=== PATIENT | male | born 1955 | race African-American/Black ===

== ENCOUNTER 2019-10-12 05:31 | Inpatient (IN) | payer MEDICARE, OTHER ==
[~2019-10-12] VITALS: Ht 172.7 cm; Wt 142.6 kg
[2019-10-12] MEDS ORDERED: DILTIAZEM HCL 5MG/ML 5ML VIAL IV ONE (05:45)
[2019-10-12 06:05] LABS: BASOPHILS % 1.2 % (0.0-2.0); EOSINOPHILS % 2.5 % (0.0-5.0); HEMATOCRIT. 45.3 % (42.0-52.0); HEMOGLOBIN. 14.8 g/dL (14.0-18.0); LYMPHOCYTES % 16.5 % (20.0-50.0); MEAN CORPUSCULAR VOLUME 82.9 fL (80.0-94.0); MEAN PLATELET VOLUME 8.7 fl (7.4-10.4); MONOCYTES % 8.9 % (2.0-8.0); NEUTROPHILS % 70.9 % (40.0-76.0); PLATELET 207 x1000/uL (130-400); RED BLOOD CELL COUNT 5.46 mill/uL (4.7-6.1); RED CELL DISTRIBUTION WIDTH 17.5 % (11.6-14.6)
[2019-10-12 06:10] LABS: CHLORIDE 107 mEq/L (98-107)
[2019-10-12] MEDS ORDERED: NITROGLYCERIN 0.4MG TABLET SL SL PRN (06:30)
[2019-10-12] MEDS ORDERED: FUROSEMIDE 40MG/4ML VIAL IV ONE (06:30)
[2019-10-12] MEDS ORDERED: ENOXAPARIN 100MG/ML SYR SUBCUT ONE (06:30)
[2019-10-12] MEDS ORDERED: ASPIRIN 81MG TABLET PO ONE (06:30)
[2019-10-12] MEDS ORDERED: POTASSIUM CHLORIDE 20MEQ TABLET SR PO ONE ×2 (06:45→10:15)
[2019-10-12] MEDS ORDERED: DILTIAZEM HCL 120MG CAPSULE CD 24HR PO ONE (07:30)
[2019-10-12 08:29] LABS: METHADONE URINE SCREEN NEGATIVE (NEGATIVE)
[2019-10-12 08:30] LABS: *AMPHETAMINES SCREEN URINE NEGATIVE (NEGATIVE); *BARBITURATES SCREEN URINE NEGATIVE (NEGATIVE); CANNABINOID URINE SCREEN NEGATIVE (NEGATIVE); OPIATES URINE SCREEN NEGATIVE (NEGATIVE); PHENCYCLIDINE URINE SCREEN NEGATIVE (NEGATIVE)
[2019-10-12] MEDS ORDERED: HYDRALAZINE HCL 100MG TABLET PO ONE (08:30)
[2019-10-12 08:31] LABS: *BENZODIAZEPINES SCREEN URINE NEGATIVE (NEGATIVE); *COCAINE SCREEN URINE NEGATIVE (NEGATIVE)
[2019-10-12] MEDS ORDERED: ONDANSETRON HCL 4MG/2ML INJ IV PRN (09:00)
[2019-10-12 09:12] LABS: PHOSPHORUS 3.9 mg/dL (2.5-4.9)
[2019-10-12] MEDS ORDERED: HYDRALAZINE 20MG/ML VIAL IV NR (10:45)
[2019-10-12] MEDS: ACETAMINOPHEN 325MG TABLET PO PRN ×2 (13:38→17:54)
[2019-10-12] MEDS: IPRATROPIUM/ALBUTEROL 0.5-3(2.5)MG/3ML NEB HHN PRN (14:30)
[2019-10-12] MEDS: DILTIAZEM HCL 60MG TABLET PO SCH ×2 (15:14→22:00)
[2019-10-12 15:51] VITALS: BP 173/95
[2019-10-12] MEDS: CLONIDINE 0.1MG TABLET PO PRN (17:54)
[2019-10-12] MEDS ORDERED: HYDRALAZINE 20MG/ML VIAL IV PRN (18:15)
[2019-10-12 20:00] VITALS: BP 100/74
[2019-10-12 23:11] VITALS: BP 100/74
[2019-10-12 23:52] LABS: CREATINE KINASE MB FRACTION 1.5 ng/mL (0.5-3.6)
[2019-10-13] VITALS (10 sets, daily range): BP systolic 148–180; BP diastolic 82–114
[2019-10-13] MEDS: DILTIAZEM HCL 60MG TABLET PO SCH ×3 (05:06→21:11)
[2019-10-13 07:47] LABS: BASOPHILS % 0.5 % (0.0-2.0); HEMATOCRIT. 40.5 % (42.0-52.0); HEMOGLOBIN. 13.3 g/dL (14.0-18.0); LYMPHOCYTES % 14.7 % (20.0-50.0); MEAN CORPUSCULAR HEMOGLOBIN 26.9 pg (28.0-32.0); MEAN PLATELET VOLUME 9.2 fl (7.4-10.4); MONOCYTES % 11.3 % (2.0-8.0); NEUTROPHILS % 71.5 % (40.0-76.0); PLATELET 182 x1000/uL (130-400); RED BLOOD CELL COUNT 4.94 mill/uL (4.7-6.1); RED CELL DISTRIBUTION WIDTH 17.5 % (11.6-14.6)
[2019-10-13 07:57] LABS: CHLORIDE 106 mEq/L (98-107)
[2019-10-13 08:08] LABS: HDL CHOLESTEROL 36 mg/dL (40-59); LDL CHOLESTEROL 74 mg/dL (5-100)
[2019-10-13] MEDS: ASPIRIN 81MG EC TABLET PO SCH (08:59)
[2019-10-13] MEDS ORDERED: POTASSIUM CHLORIDE 20MEQ TABLET SR PO NR ×2 (09:00→17:00)
[2019-10-13] MEDS: APIXABAN 5 MG TABLET PO SCH ×2 (09:00→17:28)
[2019-10-13] MEDS ORDERED: ENOXAPARIN 30MG/0.3ML SYR SUBCUT SCH (09:00)
[2019-10-13] MEDS: CLONIDINE 0.1MG TABLET PO PRN ×2 (10:18→17:29)
[2019-10-13] MEDS: HYDRALAZINE 20MG/ML VIAL IV PRN ×2 (10:50→15:52)
[2019-10-13] MEDS: ACETAMINOPHEN 325MG TABLET PO PRN (12:54)
[2019-10-13] MEDS ORDERED: HYDROCODONE/ACETAMINOPHEN 5/325MG TABLET PO PRN (13:45)
[2019-10-13] MEDS: HYDRALAZINE HCL 50MG TABLET PO SCH ×2 (13:53→21:11)
[2019-10-13] MEDS ORDERED: HYDRALAZINE HCL 25MG TABLET PO SCH (14:00)
[2019-10-14] VITALS (7 sets, daily range): BP systolic 156–195; BP diastolic 68–112
[2019-10-14] MEDS: ACETAMINOPHEN 325MG TABLET PO PRN ×2 (05:11→20:09)
[2019-10-14] MEDS: DILTIAZEM HCL 60MG TABLET PO SCH ×3 (05:11→20:08)
[2019-10-14] MEDS: HYDRALAZINE HCL 50MG TABLET PO SCH ×3 (05:11→20:08)
[2019-10-14] MEDS: CLONIDINE 0.1MG TABLET PO PRN (06:37)
[2019-10-14 07:08] LABS: CHLORIDE 105 mEq/L (98-107)
[2019-10-14 07:09] LABS: BASOPHILS % 0.5 % (0.0-2.0); EOSINOPHILS % 0.9 % (0.0-5.0); HEMATOCRIT. 42.4 % (42.0-52.0); HEMOGLOBIN. 13.9 g/dL (14.0-18.0); LYMPHOCYTES % 9.8 % (20.0-50.0); MEAN CORPUSCULAR HEMOGLOBIN 26.8 pg (28.0-32.0); MEAN CORPUSCULAR VOLUME 81.7 fL (80.0-94.0); MEAN PLATELET VOLUME 9.3 fl (7.4-10.4); MONOCYTES % 8.6 % (2.0-8.0); NEUTROPHILS % 80.2 % (40.0-76.0); PLATELET 188 x1000/uL (130-400); RED BLOOD CELL COUNT 5.19 mill/uL (4.7-6.1); RED CELL DISTRIBUTION WIDTH 17.5 % (11.6-14.6)
[2019-10-14] MEDS: ASPIRIN 81MG EC TABLET PO SCH (08:25)
[2019-10-14] MEDS: APIXABAN 5 MG TABLET PO SCH ×2 (08:25→17:08)
[2019-10-14] MEDS: HYDRALAZINE 20MG/ML VIAL IV PRN ×2 (08:32→17:13)
[2019-10-14] MEDS: POTASSIUM CHLORIDE 20MEQ TABLET SR PO SCH (12:34)
[2019-10-14] MEDS: LISINOPRIL 20MG TABLET PO SCH ×2 (12:35→20:08)
[2019-10-14] MEDS: MORPHINE SULFATE 4 MG/ML CPJ (NOT FOR IM USE) IV PRN ×2 (12:37→18:50)
[2019-10-14] MEDS: IPRATROPIUM/ALBUTEROL 0.5-3(2.5)MG/3ML NEB HHN PRN (12:43)
[2019-10-14] MEDS: FUROSEMIDE 40MG/4ML VIAL IVP SCH (17:09)
[2019-10-14] MEDS: CLONIDINE 0.2MG TABLET PO SCH (21:11)
[2019-10-15] VITALS: BP 121/72
[2019-10-15 05:22] VITALS: BP 153/87
[2019-10-15] MEDS: HYDRALAZINE HCL 50MG TABLET PO SCH ×2 (06:04→14:32)
[2019-10-15] MEDS: DILTIAZEM HCL 60MG TABLET PO SCH ×2 (06:04→14:31)
[2019-10-15] MEDS: CLONIDINE 0.2MG TABLET PO SCH ×2 (06:05→14:31)
[2019-10-15 06:14] LABS: BASOPHILS % 0.6 % (0.0-2.0); HEMATOCRIT. 41.5 % (42.0-52.0); HEMOGLOBIN. 13.8 g/dL (14.0-18.0); LYMPHOCYTES % 18.7 % (20.0-50.0); MEAN CORPUSCULAR HEMOGLOBIN 27.1 pg (28.0-32.0); MEAN CORPUSCULAR VOLUME 81.5 fL (80.0-94.0); MEAN PLATELET VOLUME 9.2 fl (7.4-10.4); MONOCYTES % 8.5 % (2.0-8.0); NEUTROPHILS % 70.2 % (40.0-76.0); PLATELET 207 x1000/uL (130-400); RED BLOOD CELL COUNT 5.09 mill/uL (4.7-6.1); RED CELL DISTRIBUTION WIDTH 17.5 % (11.6-14.6)
[2019-10-15 06:35] LABS: CHLORIDE 106 mEq/L (98-107)
[2019-10-15 08:00] VITALS: BP 122/86
[2019-10-15] MEDS: LISINOPRIL 20MG TABLET PO SCH (08:42)
[2019-10-15] MEDS: POTASSIUM CHLORIDE 20MEQ TABLET SR PO SCH (08:42)
[2019-10-15] MEDS: FUROSEMIDE 40MG/4ML VIAL IVP SCH ×2 (08:42→16:35)
[2019-10-15] MEDS: APIXABAN 5 MG TABLET PO SCH ×2 (08:42→16:36)
[2019-10-15] MEDS: ASPIRIN 81MG EC TABLET PO SCH (08:42)
[2019-10-15 12:00] VITALS: BP 141/98
[2019-10-15 16:44] VITALS: BP 151/77
== END 2019-10-15 18:04 | disposition home or self-care (01) | DRG 291 ==
LOC: ER 05:31 → 5WST 08:21 → ENRESERV 11:07 → EDBEDREQ 11:58 → 5WST 12:27
PROVIDERS: ADMIT Internal Medicine; ATTEND Internal Medicine
DX: I11.0 Hypertensive heart disease with heart failure (principal); J96.00 Acute respiratory failure, unspecified whether with hypoxia or hypercapnia; I48.20 Chronic atrial fibrillation, unspecified; I50.23 Acute on chronic systolic (congestive) heart failure; I16.0 Hypertensive urgency; K46.9 Unspecified abdominal hernia without obstruction or gangrene; E87.6 Hypokalemia; E78.5 Hyperlipidemia, unspecified; Z79.01 Long term (current) use of anticoagulants; Z86.73 Personal history of transient ischemic attack (TIA), and cerebral infarction without residual deficits; Z87.891 Personal history of nicotine dependence; Z79.82 Long term (current) use of aspirin; Z80.0 Family history of malignant neoplasm of digestive organs; Z79.899 Other long term (current) drug therapy
CPT/HCPCS: 36415; 71045; 80048; 80053; 80061; 80305; 82550; 82553; 83735; 83880; 84100; 84443; 84484; 85025; 93005; 93306; 93970; 94640; 99291; J0360; J1650; J1940; J2270; J2405; J3490

== ENCOUNTER 2021-07-23 08:44 | Emergency (ER) | payer MEDICARE ==
[~2021-07-23] VITALS: Ht 167.6 cm; Wt 150.0 kg
[2021-07-23] MEDS ORDERED: SODIUM CHLORIDE 0.9% 1000ML BAG (SEPSIS BOLUS) IV ONE (09:00)
[2021-07-23 10:15] LABS: BASOPHILS % 0.2 % (0.0-2.0); EOSINOPHILS % 0.6 % (0.0-5.0); HEMATOCRIT. 22.1 % (42.0-52.0); LYMPHOCYTES % 14.3 % (20.0-50.0); MEAN CORPUSCULAR HEMOGLOBIN 28.8 pg (28.0-32.0); MEAN CORPUSCULAR VOLUME 91.7 fL (80.0-94.0); MEAN PLATELET VOLUME 9.3 fl (7.4-10.4); MONOCYTES % 10.3 % (2.0-8.0); NEUTROPHILS % 74.6 % (40.0-76.0); PLATELET 70 x1000/uL (130-400); RED BLOOD CELL COUNT 2.41 mill/uL (4.7-6.1); RED CELL DISTRIBUTION WIDTH 17.4 % (11.6-14.6)
[2021-07-23 10:26] LABS: HEMOGLOBIN. 6.9 g/dL (14.0-18.0)
[2021-07-23 11:03] LABS: CLARITY URINE CLEAR (CLEAR); COLOR URINE YELLOW (YELLOW); KETONES URINE NEGATIVE (NEGATIVE); LEUKOCYTE ESTERASE URINE NEGATIVE (NEGATIVE); NITRITE URINE NEGATIVE (NEGATIVE); OCCULT BLOOD URINE NEGATIVE (NEGATIVE); PROTEIN URINE NEGATIVE (NEGATIVE); SPECIFIC GRAVITY URINE 1.012 (1.005-1.030)
[2021-07-23 11:17] LABS: CHLORIDE 108 mEq/L (98-107)
[2021-07-23 12:48] LABS: HEMOGLOBIN 12.6 g/dL (14.0-18.0)
[2021-07-23 14:00] VITALS: BP 124/65
== END 2021-07-23 14:29 | disposition home or self-care (01) ==
LOC: ER 09:03 → EDBEDREQ 10:49 → ER 14:29 → CANBEDREQ 21:30
DX: E86.0 Dehydration (principal); N28.9 Disorder of kidney and ureter, unspecified; I11.0 Hypertensive heart disease with heart failure; I50.9 Heart failure, unspecified; I48.91 Unspecified atrial fibrillation; E11.9 Type 2 diabetes mellitus without complications; Z86.73 Personal history of transient ischemic attack (TIA), and cerebral infarction without residual deficits
CPT/HCPCS: 36415; 71045; 80053; 81003; 83605; 83880; 84484; 85014; 85018; 85025; 86850; 86900; 86901; 86920; 87040; 93005; 99285; J7030